=== PATIENT | male | born 2000 | race Caucasian/White ===

== ENCOUNTER → 2021-05-14 | Outpatient (CLI) | payer BC ==
--- NOTE | 2021-05-14 08:38 | RAD ---
3 views right knee 05/14/2021 8:22 AM Indication: Reason: RIGHT KNEE PAIN, NO KNOWN INJURY / Comparison: None Findings: There is no acute fracture or dislocation. Articular surfaces are uninterupted and smooth. Soft tissues are unremarkable. Impression: No evidence of acute osseous abnormality. Electronically signed by: Ja Cummings MD (05/14/2021 8:36 AM) [id number]
== END ==
LOC: RAD 08:16
PROVIDERS: ATTEND Family Medicine
DX: G89.29 Other chronic pain (principal); M25.561 Pain in right knee; M76.31 Iliotibial band syndrome, right leg
CPT/HCPCS: 73562